=== PATIENT | male | born 1990 | race Two or more races ===

== ENCOUNTER → 2018-10-09 | Emergency (ER) | payer OTHER ==
[~2018-10-09] VITALS: Ht 170.2 cm; Wt 77.1 kg
[~2018-10-09] MED LIST: CEFADROXIL500 MG PO; MOTRIN800 MG PO
== END | disposition left against medical advice (07) ==
LOC: ER 17:17
DX: Z53.20 Procedure and treatment not carried out because of patient's decision for unspecified reasons (principal)

== ENCOUNTER 2018-11-08 17:20 | Emergency (ER) | payer OTHER ==
[~2018-11-08] VITALS: Ht 177.8 cm; Wt 72.6 kg
== END 2018-11-08 20:08 | disposition home or self-care (01) ==
LOC: ER 17:20
DX: G89.11 Acute pain due to trauma (principal); M79.641 Pain in right hand; M25.512 Pain in left shoulder

== ENCOUNTER 2024-04-06 16:04 | Emergency (ER) | payer OTHER ==
[~2024-04-06] VITALS: Ht 177.8 cm; Wt 74.8 kg
== END 2024-04-06 19:22 | disposition home or self-care (01) ==
LOC: ER 16:06
DX: M79.644 Pain in right finger(s) (principal); S62.609A Fracture of unspecified phalanx of unspecified finger, initial encounter for closed fracture

== ENCOUNTER 2024-07-26 14:28 | Emergency (ER) | payer OTHER ==
[~2024-07-26] VITALS: Ht 177.8 cm; Wt 74.8 kg
[2024-07-26] MEDS ORDERED: ORPHENADRINE CITRATE 30 MG/ML AMPUL IM STA (15:19)
[2024-07-26] MEDS ORDERED: DEXAMETHASONE SODIUM PHOSPHATE 4 MG/ML VIAL IM STA (15:20)
[2024-07-26] MEDS ORDERED: KETOROLAC TROMETHAMINE 30 MG VIAL IM STA (15:20)
[2024-07-26] MEDS ORDERED: ORPHENADRINE CITRATE 30 MG/ML AMPUL ONE (15:26)
[2024-07-26] MEDS ORDERED: KETOROLAC TROMETHAMINE 30 MG VIAL ONE (15:27)
[2024-07-26] MEDS ORDERED: DEXAMETHASONE SODIUM PHOSPHATE 4 MG/ML VIAL ONE (15:28)
[2024-07-26] MEDS ORDERED: NAPROXEN SODIU550 MG PO (16:56)
== END 2024-07-26 17:35 | disposition home or self-care (01) ==
LOC: ER 14:31
DX: M62.838 Other muscle spasm (principal)
CPT/HCPCS: 73030; 96372; 99283; J1100; J2360 ×3